=== PATIENT | female | born 1945 | race Caucasian/White ===

== ENCOUNTER 2022-01-10 13:44 | Inpatient (IN) | payer OTHER ==
[2022-01-10 14:01] VITALS: BMI 31.1
[2022-01-10] MEDS ORDERED: NITROGLYCERIN SUBLINGUAL 1/150 0.4 MG TAB SL ONE (14:32)
[2022-01-10] MEDS ORDERED: ALBUTEROL SO4 2.5/IPRATROPIUM 0.5 INH SOL 3 ML VIAL.NEB. NEB ONE (14:36)
[2022-01-10] MEDS: ALBUTEROL SO4 2.5/IPRATROPIUM 0.5 INH SOL 3 ML VIAL.NEB. NEB SCH ×5 (14:37→20:01)
[2022-01-10] MEDS ORDERED: NITROGLYCERIN SUBLINGUAL 1/150 0.4 MG TAB ONE (14:37)
[2022-01-10 15:38] LABS: VENOUS BASE EXCESS -5.8 mmol/L (-2-2); VENOUS O2 SATURATION 80.6 % (70-80); VENOUS PCO2 40.3 mmHg (38-52); VENOUS PH 7.313 (7.310-7.410)
[2022-01-10] MEDS ORDERED: AZITHROMYCIN IVPB 500 MG in DEXTROSE 5%-WATER - 250 ML IVPB ONE (15:42)
[2022-01-10] MEDS ORDERED: PIPERACILLIN/TAZOB 4.5 GM 4.5 GM in DEXTROSE 5%-WATER 100 ML IVPB ONE (15:45)
[2022-01-10] MEDS ORDERED: VANCOMYCIN/WATER 1,250 MG/250 ML BAG IVPB ONE (15:48)
[2022-01-10] MEDS ORDERED: FUROSEMIDE 40 MG/4 ML INJECTABLE VIAL IVPUSH ONE (15:49)
[2022-01-10 16:03] LABS: BASO % 1.1 % (0-2.0); EOS % 1.5 % (0-4.5); HEMATOCRIT 29.4 % (32.4-45.2); HEMOGLOBIN 9.3 GM/dL (10.7-15.3); LYMPH % 24.5 % (8-40); MCH 24.3 pg (25.7-33.7); MCHC 31.7 g/dl (32.0-36.0); MEAN CELL VOLUME 76.6 fl (80-96); MEAN PLT VOLUME 8.6 fl (7.5-11.1); MONO % 7.9 % (3.8-10.2); PLATELET COUNT 298 10^3/uL (134-434); RBC 3.83 M/mm3 (3.60-5.2); RDW 17.3 % (11.6-15.6); WHITE BLOOD COUNT 6.5 K/mm3 (4.0-10.0)
[2022-01-10 16:17] LABS: ALBUMIN 3.2 g/dl (3.4-5.0); BLOOD UREA NITROGEN 21.1 mg/dL (7-18); CALCIUM 9.2 mg/dL (8.5-10.1); MAGNESIUM 1.9 mg/dL (1.8-2.4)
[2022-01-10 16:20] LABS: PHOSPHOROUS 4.2 mg/dL (2.5-4.9)
[2022-01-10 16:22] LABS: BILIRUBIN,TOTAL 0.4 mg/dL (0.2-1)
[2022-01-10 17:57] LABS: LACTIC ACID 3.6 mmol/L (0.4-2.0)
[2022-01-10] MEDS ORDERED: VANCOMYCIN/WATER BAGS 1,250 MG/250 ML BAG IVPB ONE (19:02)
[2022-01-10] MEDS ORDERED: FUROSEMIDE 40 MG/4 ML INJECTABLE VIAL ONE (19:02)
[2022-01-10] MEDS ORDERED: PIPERACILLIN/TAZOB 4.5 GM 4.5 GM/100 ML BAG IVPB ONE (19:02)
[2022-01-10 19:45] LABS: N-TERMINAL BNP 9012.6 pg/ml (5-125)
[2022-01-10] MEDS ORDERED: APIXABAN 5 MG TABLET PO SCH (22:00)
[2022-01-10 23:22] VITALS: PULSE 109
[2022-01-11] MEDS ORDERED: PIPERACILLIN/TAZOB 3.375 GM 3.375 GM in DEXTROSE 5%-WATER - 50 ML IVPB SCH (02:00)
[2022-01-11 03:01] VITALS: BP 148/89; TEMP 98.8
[2022-01-11] MEDS ORDERED: PIPERACILLIN/TAZOB 3.375 GM 3.375 GM/50 ML BAG IVPB ONE (04:51)
[2022-01-11] MEDS ORDERED: INSULIN SLIDING SCALE (NOVOLOG) 1 VIAL SQ SCH (07:00)
[2022-01-11] MEDS ORDERED: FUROSEMIDE 40 MG/4 ML INJECTABLE VIAL IVPUSH SCH (10:00)
[2022-01-11 12:09] LABS: SARS-CoV-2 NAA Not Detected (Not Detected)
== END 2022-01-11 06:20 | disposition short-term general hospital (02) | DRG 291 ==
LOC: JER 13:44 → JERBED 21:53
PROVIDERS: ADMIT Hospitalist; ATTEND Hospitalist
DX: I11.0 Hypertensive heart disease with heart failure (principal); J96.01 Acute respiratory failure with hypoxia; J18.9 Pneumonia, unspecified organism; J98.11 Atelectasis; J90 Pleural effusion, not elsewhere classified; I50.9 Heart failure, unspecified; E11.51 Type 2 diabetes mellitus with diabetic peripheral angiopathy without gangrene; I25.10 Atherosclerotic heart disease of native coronary artery without angina pectoris; Z95.1 Presence of aortocoronary bypass graft; Z98.61 Coronary angioplasty status
CPT/HCPCS: 36415; 71045-TC-FY; 80053; 82803; 83605; 83735; 83880; 84100; 84484; 85025; 87040; 93005; 93010; 93970-TC; 99285-25; C9803-CS; U0003; U0005